=== PATIENT | female | born 1985 | race Caucasian/White ===

== ENCOUNTER → 2020-12-02 09:13 | Outpatient (CLI) | payer MEDICAID, SELFPAY ==
[2020-12-02 10:36] LABS: T4 Free Direct 0.88 ng/dL (0.76-1.46); Thyroid Stim Hormone (TSH) 1.94 uIU/mL (0.358-3.74)
== END ==
PROVIDERS: PCP Nurse Practitioner Primary Care; Referring Provider Nurse Practitioner Primary Care; Visit Provider Nurse Practitioner Primary Care
DX: F41.9 Anxiety disorder, unspecified (principal)
CPT/HCPCS: 36415; 84439; 84443

== ENCOUNTER 2021-06-05 22:40 | Emergency (ER) | payer MEDICAID, SELFPAY ==
[2021-06-05 22:40] VITALS: BP 139/89; PULSE 90; RESP 16; TEMP 36.3; O2SAT 97; BMI 59.1
--- NOTE | 2021-06-05 23:30 | EX.ED.DYSGE1 ---
HPI History of Present Illness Chief Complaint: Headache Informant: patient Narrative Narrative: 2-day history of intermittent headache sore throat. No fevers. No cough. No vomiting or diarrhea. No loss of taste or smell. Covid vaccinated. Found out sister today diagnosed with Covid. Positive exposure with her sister. Here for testing. Prior similar symptoms: No PFSH PENDING SALE TO [facility] Medical History (Updated 06/06/21 @ 00:[address] Manish Ch DO) Tonsillectomy planned Home Medications No Known/Unobtainable [No Known Home Medications] 02/05/17 [History Last Taken Unknown] Allergy/AdvReac Type Severity Reaction Status Date / Time amoxicillin Allergy Swelling/hi Verified 02/04/17 23:03 ves Social History Smoking Status: Never smoker ROS ROS ED Constitutional Constitutional ED: Denies chills, fever(s) or sweats Eyes Eyes: Denies change in vision ENT ENT ED: Reports sore throat; Denies dysphagia Cardiovascular Cardiovascular: Denies chest pain, leg edema, palpitations or racing heartbeat Respiratory/Chest Respiratory/Chest: Denies cough, dyspnea or dyspnea on exertion Gastrointestinal Gastrointestinal: Denies abdominal pain, diarrhea, nausea or vomiting Genitourinary Genitourinary ED: Denies dysuria, hematuria or urinary frequency Musculoskeletal Musculoskeletal: Denies back pain, extremity pain or neck pain Integumentary Denies rash or wounds Neurologic Neurologic: Reports headache(s); Denies paresthesias or weakness EXAM Physical Exam Const Vital Signs: 06/05/21 22:40 Temperature 97.4 F L Temperature Source Temporal Pulse Rate 90 Respiratory Rate 16 Blood Pressure 139/89 H Blood Pressure Mean 105 Pulse Ox 97 Oxygen Delivery Method Room Air Positive well nourished and well developed General Appearance ED: well developed and NAD HEENT Reports moist mucous membranes HEENT Narrative: No posterior pharyngeal erythema. normocephalic and atraumatic Eyes PERRL, EOMs intact bilaterally and conjunctivae normal General Eye ED: Yes normal appearance of both eyes Neck no lymphadenopathy and supple Neck Narrative: No meningismus General: Negative for tenderness Chest Wall Chest: Negative for tenderness Resp normal respiratory effort and normal air movement Effort and Inspection: symmetric chest movement; Negative for respiratory distress Cardio regular rate, regular rhythm and no murmurs Peripheral Pulses: pulses 2+ throughout GI normal to inspection, nondistended, normoactive bowel sounds and non-tender Palpation: Negative for guarding or rebound tenderness present Back/Spine no CVA tenderness and no thoracic nor lumbar tenderness Extremity normal to inspection General Extremety ED: Negative for edema or tenderness General Extremity: Negative for edema Neuro oriented x3, CN's II-XII intact bilaterally and no sensory deficits noted Sensorium / Orientation: awake and alert Skin no rashes or lesions noted and no wounds MDM MDM MDM Narrative Medical decision making narrative: Patient nontoxic vital signs stable. Normal throat exam. Centor criteria 1/4 with no cough. No meningismus. Rapid Covid obtained negative. Discussed possibility of false negative with the patient. She will monitor for any worsening symptoms. Return precautions discussed. All questions were answered. Patient is being discharged under pandemic conditions under declared global, national and state disaster activation, with limited medical resources. Patient and community understands this. Results discussed in layman's terms to the patient satisfaction. All questions answered in layman's terms. Patient understands importance of follow-up care as directed. Patient has been instructed to return to the ED immediately if new symptoms, problems, or questions occur. We mutually agree with the plan of disposition. The patient understand that they may call or return with any questions or concerns at any time. Discharge Plan Triage Chief Complaint: Headache ED Provider: Manish Ch Dx/Rx/DC Orders Clinical Impression: Pharyngitis, Headache Instructions: Coronavirus Disease 2019 (COVID-19): Overview, ED URI, Viral, No Abx (Adult) Prescriptions: No Action No Known Home Medications RF: 0 Primary Care Provider: Qiana He NP Referrals: Qiana He NP, [employer] [Primary Care Provider] - 3-5 Days if not improving Activity Restrictions/Additional Instructions: Rapid Covid negative. Monitor for worsening symptoms. Disposition Disposition: Home, Self Care Discharge Date/Time: 06/06/21 00:54
== END 2021-06-06 00:54 | disposition home or self-care (01) ==
PROVIDERS: Emergency Provider Emergency Medicine; PCP Nurse Practitioner Primary Care
DX: J02.9 Acute pharyngitis, unspecified (principal); R51.9 Headache, unspecified; Z20.822 Contact with and (suspected) exposure to COVID-19
CPT/HCPCS: 87426; 99282